=== PATIENT | male | born 1995 | race Caucasian/White ===

== ENCOUNTER 2018-11-10 11:20 | Emergency (ER) | payer SELFPAY ==
[~2018-11-10] VITALS: Ht 180.3 cm; Wt 81.6 kg
[2018-11-10] MEDS ORDERED: LIDOCAINE 1% INJ 20 ML 20 ML VIAL ONE (11:31)
[2018-11-10] MEDS ORDERED: TETANUS,DIPTH,PERTUSS P/F (BOOSTRIX) 0.5 ML VIAL IM ONE (11:45)
--- NOTE | 2018-11-10 11:50 | Diagnostic Imaging Report ---
Indication: Left third finger pain and swelling after crush injury. Comparison: None. Discussion: 3 cone-down views of the left third finger were obtained. There is a comminuted intra-articular fracture involving the length of the left third distal phalanx. Punctate radiopaque foreign bodies are also noted within the injury bed measuring up to 4 mm. Overlying soft tissue wound is present. No dislocation. Impression: 1. Comminuted intra-articular fracture involving the left third distal phalanx with associated punctate radiopaque foreign bodies. Dictated by: Dictated on workstation # [id number]
[2018-11-10] MEDS ORDERED: LIDOCAINE 1% INJ 20 ML 20 ML VIAL INJ ONE ×2 (12:15→13:15)
[2018-11-10] MEDS ORDERED: fentaNYL INJECTION 100 MCG/2 ML AMP ONE (12:54)
[2018-11-10] MEDS ORDERED: fentaNYL INJECTION 100 MCG/2 ML AMP IM ONE (13:05)
--- NOTE | 2018-11-10 13:11 | Diagnostic Imaging Report ---
Indication: Fracture. Findings: There is a comminuted fracture of the distal phalanx of the left third finger. There now appears to be a needle in the distal interphalangeal joint. There are tiny radiopaque foreign bodies within the distal soft tissues. Impression: Comminuted tuft fracture of the distal left third finger likely compound as there are tiny radiopaque foreign bodies within the soft tissues. There has been interval placement of what appears be a needle into the DIP joint of the third finger. Dictated by: Dictated on workstation # [id number]
[2018-11-10] MEDS ORDERED: cefTRIAXone 1,000 MG/2.86 ml vial (IM ONLY) ONE (13:17)
--- NOTE | 2018-11-10 13:28 | ED Upper Extremity ---
General Chief Complaint: Laceration Stated Complaint: INJ TO MIDDLE FINGER ON LT HAND Nursing Triage Note: PATIENT C/O LACERATION ON HIS LEFT MIDDLE FINGER. STATES HE WAS DRIVING FENCE POST WITH A HAMMER MISSED AND HIT HIS FINGER DRIVING IT INTO THE FENCE POST SPLITTING HIS SKIN AND FINGER NAIL. Nursing Sepsis Screen: No Definite Risk Source: patient Exam Limitations: no limitations History of Present Illness Date Seen by Provider: Nov 10, 2018 Time Seen by Provider: 13:29 Initial Comments This is a 22-year-old white male presents after sustaining a crush injury to his left middle finger when he struck it with a heavy hammer while driving fence shortly prior to presentation to the emergency department. The patient's complaint of pain over the impact area which is the distal phalanx of the left middle finger. Patient denies loss of sensation or range of motion of the affected digit denies other injury. Allergies and Home Medications Allergies Coded Allergies: No Known Drug Allergies (Unverified , 11/10/18) Patient Home Medication List Home Medication List Reviewed: Yes Review of Systems Constitutional: no symptoms reported EENTM: no symptoms reported Respiratory: no symptoms reported Cardiovascular: no symptoms reported Gastrointestinal: no symptoms reported Genitourinary: no symptoms reported Musculoskeletal: see HPI Skin: see HPI, other Psychiatric/Neurological: No Symptoms Reported Past [id number]-[id number] Hx Past Med/Social Hx: Reviewed Nursing Past Med/Soc Hx Patient Social History Alcohol Use: Denies Use Recreational Drug Use: No Smoking Status: Current Everyday Smoker Type Used: Cigarettes 2nd Hand Smoke Exposure: No Recent Foreign Travel: No Contact w/Someone Who Travel: No Recent Infectious Disease Expo: No Recent Hopitalizations: No Physical Abuse: No Sexual Abuse: No Mistreated: No Fear: No Immunizations Up To Date Tetanus Booster (TDap): Unknown Seasonal Allergies Seasonal Allergies: No Past Medical History Surgeries: No Respiratory: No Cardiac: No Neurological: No Genitourinary: No Gastrointestinal: No Musculoskeletal: No Endocrine: No HEENT: No Cancer: No Psychosocial: No Integumentary: No Blood Disorders: No Physical Exam Vital Signs Vital Signs - First Documented 11/10/18 11:25 Temp 97.6 Pulse 70 Resp 18 B/P (MAP) 114/56 (75) Pulse Ox 100 O2 Delivery Room Air Capillary Refill : Less Than 3 Seconds Height, Weight, BMI Height: 5'11.00" Weight: 180lbs. oz. 81.917008ik; BMI Method:Stated General Appearance: WD/WN, mild distress HEENT: normal ENT inspection Neck: normal inspection Cardiovascular: regular rate, rhythm Respiratory: lungs clear Gastrointestinal: normal bowel sounds, soft Back: normal inspection Shoulder: normal inspection Elbow/Forearm: normal inspection Wrist: Yes normal inspection Hand: Left (there is a crush injury to this thanks a left middle finger. There is a laceration extending through the nail bed proximally. Laceration approx imately 2 inches in length.) Neurologic/Tendon: normal sensation, normal motor functions, normal tendon fu nctions Skin: normal color, warm/dry Progress/Results/Core Measures Results/Orders My Orders Orders - TARI AGOSTO MD Dipht,Machelle(Acell),Tet Adult (Boostrix (11/10/18 11:45) Finger(S) (11/10/18 11:34) Lidocaine 1% Inj 20 Ml (Xylocaine 1% Inj (11/10/18 11:31) Lidocaine 1% Inj 20 Ml (Xylocaine 1% Inj (11/10/18 12:15) Finger(S) (11/10/18 12:19) Fentanyl Injection (Sublimaze Injection (11/10/18 12:54) Ceftriaxone For Im Use (Rocephin For Im (11/11/18 09:00) Lidocaine 1% Inj 20 Ml (Xylocaine 1% Inj (11/10/18 13:15) Fentanyl Injection (Sublimaze Injection (11/10/18 13:05) Ceftriaxone For Im Use (Rocephin For Im (11/10/18 13:17) Medications Given in ED Current Medications Medications Dose Ordered Sig/Rylee Route Start Time Stop Time Status Last Admin Dose Admin Diphtheria/ Tetanus/Acell Pertussis 0.5 ml ONCE ONCE IM 11/10/18 11:45 11/10/18 11:46 DC 11/10/18 13:05 0.5 ML Fentanyl Citrate 50 mcg ONCE ONCE IM 11/10/18 13:05 11/10/18 13:09 DC 11/10/18 13:05 50 MCG Lidocaine HCl 20 ml ONCE ONCE INJ 11/10/18 12:15 11/10/18 12:16 DC 11/10/18 12:00 20 ML Vital Signs/I&O 11/10/18 11:25 Temp 97.6 Pulse 70 Resp 18 B/P (MAP) 114/56 (75) Pulse Ox 100 O2 Delivery Room Air Blood Pressure Mean: 75 Progress Progress Note : Time: 13:32 Progress Note I used 1 percent Xylocaine for digital anesthesia. Wound was copiously cleaned and irrigated and then approximated in interrupted fashion with 4-0 nylon. X-ray demonstrated a intra-articular fracture of the distal phalanx. I placed a pin ineffectively. Which I subsequently removed. The patient will require evaluation with orthopedics for definitive care. Patient received a gram of Rocephin IM. He was given 50 g of fentanyl IM for his pain. Wound was cleaned dressed and splinted. Departure Impression Primary Impression: Open fracture of finger Qualified Codes: S62.633B - Displaced fracture of distal phalanx of left middle finger, initial encounter for open fracture Disposition: HOME, SELF-CARE Condition: Improved Departure-Patient Inst. Decision time for Depature: 13:35 Referrals: TERRI CROWE DO Patient Instructions: Finger Fracture (DC) Add. Discharge Instructions: Vicodin for pain. Bactrim for antibiotic. Elevate the left hand. See Dr. Crowe Monday. Return if any problems. All discharge instructions reviewed with patient and/or family. Voiced understanding. Scripts Hydrocodone/Acetaminophen (Vicodin 5-300 mg Tablet) 1 Each Tablet 1-2 EACH PO Q6H PRN for PAIN-MODERATE MDD 10 for 10 Days, #30 TAB Prov: TARI AGOSTO MD 11/10/18 Sulfamethoxazole/Trimethoprim (Bactrim Ds Tablet) 1 Each Tablet 1 EACH PO BID PRN for 14 Days, TAB Prov: TARI AGOSTO MD 11/10/18 TARI AGOSTO MD Nov 10, 2018 13:28
[2018-11-10] MEDS ORDERED: SULF1TAB35 PO (13:41)
[2018-11-10] MEDS ORDERED: HYDR-3455 PO (13:42)
[2018-11-10 13:56] VITALS: BP 133/50
[2018-11-11] MEDS ORDERED: cefTRIAXone 1,000 MG/2.86 ml vial (IM ONLY) IM SCH (09:00)
== END 2018-11-10 13:56 | disposition home or self-care (01) ==
LOC: ER FS 11:22
DX: S62.633B Displaced fracture of distal phalanx of left middle finger, initial encounter for open fracture (principal); F17.210 Nicotine dependence, cigarettes, uncomplicated; W27.8XXA Contact with other nonpowered hand tool, initial encounter
CPT/HCPCS: 12002; 29130; 73140; 90471; 90715; 96372